=== PATIENT | female | born 1955 | race Caucasian/White ===

== ENCOUNTER 2021-10-01 11:48 | Emergency (ER) | payer MEDICARE, SELFPAY ==
--- NOTE | ~2021-10-01 | XR_ITS ---
EXAMINATION: [id number] INDICATION: Left-sided rib pain TECHNIQUE: A frontal view of the chest and 3 views of the left ribs were obtained. COMPARISON: None. FINDINGS: The lungs are free of acute opacities. No pleural effusion or pneumothorax. The cardiomedia stinal silhouette is normal. There are minimally displaced fractures of the left fifth through sevent h ribs. IMPRESSION: 1. Minimally displaced left fifth through seventh rib fractures. 2. No acute cardiopulmonary abnormality. Reviewed, dictated and finalized at location B.
[2021-10-01 12:04] VITALS: BP 131/75; PULSE 62; RESP 16; TEMP 36.4; O2SAT 99
--- NOTE | 2021-10-01 12:28 | ED.GENADULT ---
HPI - General Adult General Chief complaint: Trauma Stated complaint: LEFT RIB PAIN Time Seen by Provider: 10/01/21 12:28 History of Present Illness HPI narrative: Roseline Lee is a 65 yo female with PMH of HTN, depression, who comes to [facility] for x-ray of the chest when she fell last Monday; with a chair hit her on the left side when she leaned over and it collapsed still has pain under her left breast Related Data Home Medications Medication Instructions Recorded Confirmed Natural Co-Q10 10/01/21 Zyrtec 10/01/21 ezetimibe 10 mg tablet mg 10/01/21 indapamide 1.25 mg tablet mg 10/01/21 lisinopril 20 mg tablet mg 10/01/21 sertraline 50 mg tablet mg 10/01/21 Allergies Allergy/AdvReac Type Severity Reaction Status Date / Time No Known Allergies Allergy Unverified 10/01/21 12:08 Review of Systems Review of Systems: CONSTITUTIONAL: Denies fever, chills, sweats. EYES: Denies visual changes, redness, discharge. ENT: Denies rhinorrhea, congestion, sore throat, otalgia. CARDIOVASCULAR: Denies chest pain, palpitations, edema. RESPIRATORY: Denies dyspnea, wheezing, cough GASTROINTESTINAL: Denies abdominal pain, nausea, vomiting, diarrhea. GENITOURINARY: Denies dysuria, hematuria, abnormal discharge SKIN: Denies rash or itching. NEUROLOGIC: Denies numbness, or focal weakness. PSYCHIATRIC: Denies anxiety or depression. Left chest wall pain under breath PMFSH Past Medical History Medical History Depression HTN (hypertension) Social History Social History (Updated 10/01/21 @ 12:30 by Claudia Eden CNP) Smoking status: Never smoker Comments At time of signature, I agree with nursing past medical, surgical, social and family history. There is no relevant family history pertinent to the presenting complaint. Exam Narrative: GENERAL: This is a well-nourished, well-developed patient, in mild distress. HEAD: normocephalic, atraumatic. EYES: Sclera clear/white. Vision is grossly intact. EARS: External ears normal, Hearing grossly intact. NOSE: External nose normal without nasal discharge, nares without redness, no rhinorrhea. THROAT: Mucous membranes moist, NECK: Neck supple, CARDIOVASCULAR: Regular rate and rhythm without murmurs, gallops, or rubs. Chest wall: RESPIRATORY: Clear to auscultation. Breath sounds equal bilaterally. No wheezes, rales, or rhonchi. GASTROINTESTINAL: Abdomen soft, non-tender, SKIN: warm, intact with no suspicious lesions or rash, good texture and turgor. NEURO: awake, alert, and oriented to person, place and time. There were no obvious focal neurologic abnormalities. Steady gait EXTREMITIES: Normal range of motion. BACK: Nontender without deformity Course Course Emergency Course: Patient fell last Monday over a folding chair and her left ribs Chest x-ray shows minimally displaced left fifth through seventh rib fractures no cardiomegaly Given incentive spirometer and discussed use of ibuprofen and Tylenol for pain Level of Care: Express Care Visit Vital Signs Vital signs: Vital Signs Temperature 97.5 F L 10/01/21 12:04 Pulse Rate 62 10/01/21 12:04 Respiratory Rate 16 10/01/21 12:04 Blood Pressure 131/75 10/01/21 12:04 Pulse Oximetry 99 10/01/21 12:04 Oxygen Delivery Room Air 10/01/21 12:04 Temperature 97.5 F L 10/01/21 12:04 Pulse Rate 62 10/01/21 12:04 Respiratory Rate 16 10/01/21 12:04 Blood Pressure 131/75 10/01/21 12:04 Pulse Oximetry 99 10/01/21 12:04 Oxygen Delivery Room Air 10/01/21 12:04 Medical Decision Making Differential Diagnosis Differential Diagnosis: Rib pain versus rib fracture versus respiratory illness Vital Signs Vital Signs: Vital Signs Temperature 97.5 F L 10/01/21 12:04 Pulse Rate 62 10/01/21 12:04 Respiratory Rate 16 10/01/21 12:04 Blood Pressure 131/75 10/01/21 12:04 Pulse Oximetry 99 10/01/21 12:04 Oxygen
--- NOTE | 2021-10-01 12:54 | PC.NURSE ---
[facility] dispatcher aware of pharm. jazzy hatch and has been changed from [facility], requested copy of xray on cd d/t physician not on staff.
== END 2021-10-01 12:44 | disposition home or self-care (01) ==
PROVIDERS: Emergency Provider Nurse Practitioner
DX: S22.42XA Multiple fractures of ribs, left side, initial encounter for closed fracture (principal); W19.XXXA Unspecified fall, initial encounter; I10 Essential (primary) hypertension
CPT/HCPCS: 71101; 99213; G0463